=== PATIENT | male | born 1940 | race Caucasian/White ===

== ENCOUNTER 2022-08-11 08:22 | Day surgery (SDC) | payer MEDICARE, BC, OTHER ==
[~2022-08-11] VITALS: Ht 175.3 cm; Wt 80.7 kg
[~2022-08-11 08:22] MED LIST: CHLO125TA PO; ECOT81TA5 PO; GABA-282 PO; METF500T13 PO; METO50TA7 PO; RAMI1CAP24 PO; SIMV20TA22 PO; SIMV40TA20 PO
[2022-08-11] MEDS ORDERED: LR 1,000 ML IV SCH (08:45)
[2022-08-11] MEDS ORDERED: propofoL 200 MG/20 ML VIAL As Ordered ONE (09:48)
[2022-08-11] MEDS ORDERED: LIDOCAINE 2% 100MG/5ML SDV (FOR ANES.) As Ordered ONE (09:48)
[2022-08-11] MEDS ORDERED: ONDANSETRON 4MG 2ML VIAL As Ordered ONE (09:48)
[2022-08-11] MEDS ORDERED: SUGAMMADEX SODIUM 500 MG/5 ML VIAL (BRIDION) As Ordered ONE (09:48)
[2022-08-11] MEDS ORDERED: ROCURONIUM BROMIDE 50MG/5ML VIAL As Ordered ONE (09:48)
[2022-08-11] MEDS ORDERED: fentaNYL 100 MCG/2 ML INJECTION As Ordered ONE (09:57)
[2022-08-11] MEDS ORDERED: CETACAINE SPRAY 5GM As Ordered ONE (11:07)
[2022-08-11] MEDS ORDERED: EPINEPHrine 1MG/10ML SYRINGE 1.5IN As Ordered ONE (11:08)
[2022-08-11] MEDS ORDERED: ACETAMINOPHEN 1000MG 100ML IV BAG As Ordered ONE (11:39)
[2022-08-11] MEDS ORDERED: ePHEDrine SULFATE 25 MG/5 ML(5MG/ML) SYRINGE As Ordered ONE (11:53)
[2022-08-11] MEDS ORDERED: fentaNYL 100 MCG/2 ML INJECTION IV PRN (12:25)
[2022-08-11] MEDS ORDERED: MORPHINE 2 MG/ML 1ML VIAL IV PRN (12:25)
[2022-08-11] MEDS ORDERED: ONDANSETRON 4MG 2ML VIAL IV PRN (12:25)
[2022-08-11] MEDS ORDERED: oxyCODONE 5MG TAB PO PRN (12:25)
[2022-08-11 13:35] VITALS: BP 146/68
== END 2022-08-11 13:40 | disposition home or self-care (01) ==
LOC: M SDC 08:22
PROVIDERS: ATTEND Internal Medicine Pulmonary Disease
DX: R59.0 Localized enlarged lymph nodes (principal); J44.9 Chronic obstructive pulmonary disease, unspecified; R91.8 Other nonspecific abnormal finding of lung field; Z87.891 Personal history of nicotine dependence; E78.00 Pure hypercholesterolemia, unspecified; I25.10 Atherosclerotic heart disease of native coronary artery without angina pectoris; Z79.899 Other long term (current) drug therapy; Z79.84 Long term (current) use of oral hypoglycemic drugs; Z79.82 Long term (current) use of aspirin
CPT/HCPCS: 31629; 31652; 71045; 88173; 88305; J0131; J1100; J2405; J3010